=== PATIENT | male | born 1960 | race Caucasian/White ===

== ENCOUNTER 2017-11-14 09:46 | Inpatient (IN) | payer OTHER ==
[~2017-11-14] VITALS: Ht 185.4 cm; Wt 209.6 kg
[2017-11-14] MEDS ORDERED: PLEASE ENTER ALLERGIES MC SCH (10:30)
[2017-11-14] MEDS ORDERED: AMPICILLIN/SULBACTAM 3 GM in SODIUM CHLORIDE 0.9% 100 ML IV ONE (10:30)
[2017-11-14] MEDS ORDERED: VANCOMYCIN PER PHARMACY MC ONE (10:30)
[2017-11-14 10:52] LABS: BASOPHILS # (AUTO) 0.02 x10^3/uL (0-0.1); BASOPHILS % (AUTO) 0 % (0-1); EOSINOPHILS # (AUTO) 0.01 x10^3/uL (0-0.4); EOSINOPHILS % (AUTO) 0 % (1-7); LYMPHOCYTES # (AUTO) 0.83 x10^3/uL (1-3.4); LYMPHOCYTES % (AUTO) 9 % (22-44); MD NO; MEAN CORPUSCULAR HGB CONC 34.1 g/dL (33.2-36.2); MEAN PLATELET VOLUME 7.7 fL (7.4-10.4); MONOCYTES # (AUTO) 0.84 x10^3/uL (0.2-0.8); MONOCYTES % (AUTO) 10 % (2-9); NEUTROPHILS # (AUTO) 7.11 x10^3/uL (1.8-6.8); NEUTROPHILS % (AUTO) 81 % (42-75); PLATELET COUNT 170 x10^3/uL (130-400); RED BLOOD COUNT 4.38 x10^6/uL (4.38-5.82); RED CELL DISTRIBUTION WIDTH 13.2 % (9.4-14.8)
[2017-11-14 11:03] LABS: ALANINE AMINOTRANSFERASE 48 U/L (12-78); ALBUMIN 3.4 g/dL (3.4-5.0); ANION GAP 10 mmol/L (5-15); CALCIUM 8.5 mg/dL (8.5-10.1); CHLORIDE 106 mmol/L (98-107); CREATININE 0.85 mg/dL (0.7-1.3)
[2017-11-14 11:05] LABS: ALKALINE PHOSPHATASE 60 U/L (45-117); BILIRUBIN,TOTAL 2.3 mg/dL (0.2-1.0); TOTAL PROTEIN 6.6 g/dL (6.4-8.2)
[2017-11-14] MEDS ORDERED: VANCOMYCIN 2,000 MG in SODIUM CHLORIDE 0.9% 500 ML IV ONE (11:30)
[2017-11-14 12:00] VITALS: BP 100/51
[2017-11-14 13:10] VITALS: BP 99/64
[2017-11-14] MEDS ORDERED: ACETAMINOPHEN 325 MG TABLET PO PRN (15:00)
[2017-11-14] MEDS ORDERED: POLYETHYLENE GLYCOL 17 GM PACKET PO PRN (15:00)
[2017-11-14] MEDS ORDERED: DOCUSATE 100 MG CAPSULE PO PRN (15:00)
[2017-11-14] MEDS ORDERED: ONDANSETRON 2MG/ML, 2ML IVPush PRN (15:00)
[2017-11-14] MEDS ORDERED: HALOPERIDOL 5 MG/ML IVPush PRN (15:00)
[2017-11-14] MEDS ORDERED: VANCOMYCIN PER PHARMACY MC PRN (15:00)
[2017-11-14] MEDS ORDERED: PHARMACOKINETIC MONITORING MC PRN (15:30)
[2017-11-14] MEDS ORDERED: VANCOMYCIN 2,000 MG in SODIUM CHLORIDE 0.9% 500 ML IV SCH (15:30)
[2017-11-14] MEDS ORDERED: PHARMACOKINETIC CONSULTATION MC ONE (15:30)
[2017-11-14] MEDS: ENOXAPARIN 30 MG/0.3 ML SQ SCH (17:47)
[2017-11-14] MEDS: AMPICILLIN/SULBACTAM 3 GM in SODIUM CHLORIDE 0.9% 100 ML IV SCH ×2 (17:47→23:43)
[2017-11-14] MEDS: NS + 20MEQ KCL 1,000 ML IV SCH (18:30)
[2017-11-14 19:58] VITALS: BP 102/60
[2017-11-15 00:26] VITALS: BP 97/54
[2017-11-15] MEDS: NS + 20MEQ KCL 1,000 ML IV SCH (02:52)
[2017-11-15 04:51] LABS: CREATININE 0.61 mg/dL (0.7-1.3)
[2017-11-15] MEDS: AMPICILLIN/SULBACTAM 3 GM in SODIUM CHLORIDE 0.9% 100 ML IV SCH ×4 (05:00→23:11)
[2017-11-15 06:38] VITALS: BP 97/64
[2017-11-15 13:46] VITALS: BP 97/62
[2017-11-15] MEDS ORDERED: VANCOMYCIN 2,000 MG in SODIUM CHLORIDE 0.9% 500 ML IV SCH (18:00)
[2017-11-15 19:10] VITALS: BP 107/61
[2017-11-15] MEDS: ENOXAPARIN 30 MG/0.3 ML SQ SCH (19:18)
[2017-11-16 02:14] VITALS: BP 104/66
[2017-11-16] MEDS: AMPICILLIN/SULBACTAM 3 GM in SODIUM CHLORIDE 0.9% 100 ML IV SCH (05:37)
[2017-11-16 07:36] VITALS: BP 108/69
[2017-11-16] MEDS ORDERED: SULF1TAB24 PO (08:58)
[2017-11-16] MEDS ORDERED: GABAPENTIN 300 MG CAPSULE PO SCH (09:00)
[2017-11-16] MEDS ORDERED: DOXYCYCLINE 100MG TABLET PO SCH (09:00)
[2017-11-16 10:07] LABS: ALANINE AMINOTRANSFERASE 31 U/L (12-78); ALBUMIN 2.6 g/dL (3.4-5.0); ANION GAP 4 mmol/L (5-15); CALCIUM 7.9 mg/dL (8.5-10.1); CHLORIDE 110 mmol/L (98-107); CREATININE 0.75 mg/dL (0.7-1.3)
[2017-11-16 10:09] LABS: ALKALINE PHOSPHATASE 51 U/L (45-117); BILIRUBIN,TOTAL 0.7 mg/dL (0.2-1.0); TOTAL PROTEIN 5.7 g/dL (6.4-8.2)
[2017-11-16 13:52] VITALS: BP 106/69
[2017-11-16] MEDS ORDERED: ENOXAPARIN 40 MG/0.4 ML SQ SCH (15:00)
== END 2017-11-16 16:15 | disposition home or self-care (01) | DRG 603 ==
LOC: ED 11:07 → EDBD 11:08 → MERGE 11:08 → EDIP 11:08 → ED 11:50 → 3NE 12:05
PROVIDERS: ADMIT Internal Medicine; ATTEND Family Medicine
DX: L03.116 Cellulitis of left lower limb (principal); R17 Unspecified jaundice; L03.115 Cellulitis of right lower limb; G62.9 Polyneuropathy, unspecified; F06.1 Catatonic disorder due to known physiological condition
CPT/HCPCS: 36415; 80053; 82565; 84520; 85025; 96374; 99285; G0378; J0295; J1650; J3370; J3480; J7040

== ENCOUNTER 2020-08-09 09:26 | Emergency (ER) | payer SELFPAY ==
[~2020-08-09] VITALS: Ht 185.4 cm; Wt 89.5 kg
[~2020-08-09 09:26] MED LIST: SULF-23 PO
[2020-08-09] MEDS ORDERED: CEPHALEXIN 500 MG CAPSULE ONE (09:54)
[2020-08-09 09:57] VITALS: BP 112/87
--- NOTE | 2020-08-09 09:57 | NUR ---
MD AWARE OF PTS HR.
[2020-08-09] MEDS ORDERED: CEPHALEXIN 500 MG CAPSULE PO ONE (10:00)
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
== END 2020-08-09 10:41 | disposition home or self-care (01) ==
LOC: ED 10:37
DX: L55.0 Sunburn of first degree (principal); R05 Cough; R00.0 Tachycardia, unspecified
CPT/HCPCS: 99283